=== PATIENT | female | born 1950 | race Caucasian/White ===

== ENCOUNTER 2020-05-31 09:58 | Outpatient (CLI) | payer MEDICARE, SELFPAY ==
[2020-05-31 10:41] LABS: Calcium 9.4 mg/dL (8.4-10.2)
[2020-05-31 10:53] LABS: Parathyroid Intact 32.9 pg/mL (7.5-53.5)
[2020-05-31 11:09] LABS: Free T4 Free Thyroxine 2.39 ng/mL (0.78-2.19)
[2020-05-31 11:11] LABS: Thyroid Stimulating Hormone < 0.015 uIU/mL (0.465-4.680)
[2020-06-05 12:47] LABS: Triiodothyronine T3 Free 3.9 pg/mL (2.3-4.2)
[2020-06-07 03:41] LABS: Thyroglobulin 0.7 ng/mL (2.8-40.9); Thyroglobulin Antibodies <1 IU/mL (<=1)
== END 2020-05-31 09:59 | disposition home or self-care (01) ==
LOC: ANHLAB 10:09
PROVIDERS: PCP Family Medicine
DX: C73 Malignant neoplasm of thyroid gland (principal)
CPT/HCPCS: 36415; 82310; 83970; 84432; 84439; 84443; 84481; 86800

== ENCOUNTER 2020-06-21 08:28 | Outpatient (CLI) | payer MEDICARE, SELFPAY ==
[2020-06-25 04:56] LABS: Thyroglobulin 1.5 ng/mL (2.8-40.9); Thyroglobulin Antibodies <1 IU/mL (<=1)
== END 2020-06-21 08:29 | disposition home or self-care (01) ==
PROVIDERS: PCP Family Medicine
DX: C73 Malignant neoplasm of thyroid gland (principal)
CPT/HCPCS: 36415; 84432; 84443; 86800

== ENCOUNTER 2020-06-28 08:18 | Outpatient (CLI) | payer MEDICARE, SELFPAY ==
[2020-06-28 08:52] LABS: Calcium 9.5 mg/dL (8.4-10.2)
[2020-06-28 09:33] LABS: Free T4 Free Thyroxine 0.21 ng/mL (0.78-2.19)
[2020-07-01 04:08] LABS: Thyroglobulin 5.2 ng/mL (2.8-40.9); Thyroglobulin Antibodies <1 IU/mL (<=1)
== END 2020-06-28 08:19 | disposition home or self-care (01) ==
LOC: ANHLAB 08:26
PROVIDERS: PCP Family Medicine
DX: C73 Malignant neoplasm of thyroid gland (principal)
CPT/HCPCS: 36415; 82310; 84432; 84439; 84443; 84481; 86800

== ENCOUNTER 2020-08-02 07:38 | Outpatient (CLI) | payer MEDICARE, SELFPAY ==
[2020-08-06 05:57] LABS: Thyroglobulin 2.4 ng/mL (2.8-40.9); Thyroglobulin Antibodies <1 IU/mL (<=1)
== END 2020-08-02 07:39 | disposition home or self-care (01) ==
PROVIDERS: PCP Family Medicine
DX: C73 Malignant neoplasm of thyroid gland (principal)
CPT/HCPCS: 36415; 84432; 84443; 86800

== ENCOUNTER 2020-10-15 00:32 | Outpatient (CLI) | payer MEDICARE, SELFPAY ==
[2020-10-15 18:51] LABS: SARS-CoV-2 RNA PCR Negative
== END 2020-10-15 00:33 | disposition home or self-care (01) ==
LOC: ANHCOVIDDT 00:32
PROVIDERS: PCP Family Medicine; Visit Provider Internal Medicine Gastroenterology
DX: Z01.812 Encounter for preprocedural laboratory examination (principal); Z20.828 Contact with and (suspected) exposure to other viral communicable diseases
CPT/HCPCS: 87635; C9803; U0003

== ENCOUNTER 2020-10-18 01:25 | Day surgery (SDC) | payer MEDICARE, SELFPAY ==
[2020-10-09 13:26] VITALS: BMI 21.5
[2020-10-18 09:17] VITALS: BP 137/75; PULSE 84; RESP 20; TEMP 36.9; O2SAT 99
[2020-10-18] MEDS: LACTATED RINGERS 1,000 ML 150 ML IV CONT (09:26)
--- NOTE | 2020-10-18 09:53 | WPDGICN ---
Assessment and Plan Assessment and plan (1) Family history of colon cancer in mother: Code(s): Z80.0 - Family history of malignant neoplasm of digestive organs Status: Acute Assessment and Plan: Patient presents for surveillance colonoscopy. Her family history includes mother with colon cancer grandmother with colon cancer uncle with colon cancer and a sister with colon cancer. Surveillance colonoscopies are recommended at least every 5 years if not more frequent. GI Consult Note Consult date/time: 10/18/20 09:53 HPI: Priscilla Borja is a 70 year old female Seen in evaluation at the request of Dr. Garcia. Patient has a family history of colon cancer. She presents today for colonoscopy. Patient's family includes sister mother uncle grandmother all with colon cancer. One sister had a premalignant polyp removed. Patient states that her current weight appetite bowel movements are normal. She denies abdominal pain. She has had no bleeding. The patient's past history is significant for thyroid cancer on 2 occasions. Patient presents today for surveillance colonoscopy Review of Systems Review of Systems: All systems reviewed & are unremarkable except as noted in HPI and below PMFSH Past Medical History Medical History (Updated 10/18/20 @ 09:55 by Rosendo Frazier MD) Normal nuclear stress test 9.25.20 Trigger finger (~2015) Varicose vein of leg Surgical History Surgical History H/O arthroplasty (~2008) H/O right breast biopsy (~1994) History of bilateral carpal tunnel release (~2004) History of thyroidectomy, total 2018 papillary cancer S/P Mohs surgery for basal cell carcinoma (~2012) S/P removal of left ovary Family History Family History Mother Patient's mother is , Onset Age: 61 Carcinoma of colon Family history of malignant neoplasm of uterus Family history of malignant neoplasm of breast Father Patient's father is , Onset Age: 60 Family history of malignant neoplasm of skin Carcinoma of colon Family history of throat cancer Sibling Carcinoma of colon Other Family history of lung cancer Family history of malignant neoplasm of esophagus Malignant neoplasm of prostate Social History Social History Smoking status: Never smoker Alcohol intake: current Drinks per week: 4 Living arrangements: with family Gender identity (if verbalized by the patient): Female Spiritual care concerns: No Meds Home Medications and Allergies Home Medications Medication Instructions Recorded Confirmed Type aspirin 81 mg chewable tablet 81 mg PO DAILY 09/27/19 10/09/20 History cholecalciferol (vitamin D3) 50 50 mcg PO DAILY 09/27/19 10/09/20 History mcg (2,000 unit) capsule glucosamine sulfate 500 1 cap PO BID 09/27/19 10/09/20 History mg-chondroitin 250 mg-msm 250 mg capsule levothyroxine 112 mcg tablet 112 mcg PO DAILY 05/08/20 10/09/20 History meloxicam 15 mg tablet 15 mg PO DAILY #90 tablet 06/20/20 10/09/20 Rx amoxicillin 500 mg capsule See Rx Instructions .ROUTE 09/16/20 10/09/20 Rx .COMPLEX #90 cap atorvastatin 10 mg tablet 10 mg PO DAILY #90 tablet 10/02/20 10/09/20 Rx clorazepate dipotassium 7.5 mg 7.5 mg PO BID PRN #60 tablet 10/10/20 Rx tablet Allergies Allergy/AdvReac Type Severity Reaction Status Date / Time hydrocodone Allergy Unknown Nausea Verified 10/18/20 09:15 Vital Signs Vital Signs - 24 hr 10/18/20 09:17 Temperature 98.5 F Pulse Rate 84 Respiratory Rate 20 Blood Pressure 137/75 Pulse Oximetry 99 Exam Narrative: Exam Narrative: physical exam reveals patient to be alert. Vital signs stable. HEENT exam unremarkable. Lungs are clear to auscultation and percussion. Heart is without murmur or extra sounds. Abdominal exam bowel s
--- NOTE | 2020-10-18 09:58 | WPDANESEPPF ---
Anes - Initial Pre Proc Eval Procedure: Operation Date: 10/18/20 10:30 Proposed Procedures p Screening Colonoscopy - Rosendo Frazier MD Date/Time: 10/18/20 09:58 Surgeon: Rosendo Frazier MD Pre Op Diagnosis: Fam Hx Colon Ca Patient Data Age: 70 Gender: F Height: 5 ft Weight: 50.1 kg Last Vital Signs Temp 98.5 F 10/18/20 09:17 Pulse 84 10/18/20 09:17 Resp 20 10/18/20 09:17 BP 137/75 10/18/20 09:17 Pulse Ox 99 10/18/20 09:17 Allergies Allergy/AdvReac Type Severity Reaction Status Date / Time hydrocodone Allergy Unknown Nausea Verified 10/18/20 09:15 Home Medications Medication Instructions Recorded Confirmed Type aspirin 81 mg chewable tablet 81 mg PO DAILY 09/27/19 10/09/20 History cholecalciferol (vitamin D3) 50 50 mcg PO DAILY 09/27/19 10/09/20 History mcg (2,000 unit) capsule glucosamine sulfate 500 1 cap PO BID 09/27/19 10/09/20 History mg-chondroitin 250 mg-msm 250 mg capsule levothyroxine 112 mcg tablet 112 mcg PO DAILY 05/08/20 10/09/20 History meloxicam 15 mg tablet 15 mg PO DAILY #90 tablet 06/20/20 10/09/20 Rx amoxicillin 500 mg capsule See Rx Instructions .ROUTE 09/16/20 10/09/20 Rx .COMPLEX #90 cap atorvastatin 10 mg tablet 10 mg PO DAILY #90 tablet 10/02/20 10/09/20 Rx clorazepate dipotassium 7.5 mg 7.5 mg PO BID PRN #60 tablet 10/10/20 Rx tablet Patient hx anesthesia problems: none Family hx anesthesia problems: none PMFSH Past Medical History Medical History (Updated 10/18/20 @ 09:58 by Varun Ferrer MD) Gastroesophageal reflux Mixed hyperlipidemia Normal nuclear stress test ..20 Thyroid cancer Trigger finger (~2015) Varicose vein of leg Surgical History Surgical History H/O arthroplasty (~2008) H/O right breast biopsy (~1994) History of bilateral carpal tunnel release (~2004) History of thyroidectomy, total 2018 papillary cancer S/P Mohs surgery for basal cell carcinoma (~2012) S/P removal of left ovary Family History Family History Mother Patient's mother is , Onset Age: 61 Carcinoma of colon Family history of malignant neoplasm of uterus Family history of malignant neoplasm of breast Father Patient's father is , Onset Age: 60 Family history of malignant neoplasm of skin Carcinoma of colon Family history of throat cancer Sibling Carcinoma of colon Other Family history of lung cancer Family history of malignant neoplasm of esophagus Malignant neoplasm of prostate Social History Social History Smoking status: Never smoker Alcohol intake: current Drinks per week: 4 Living arrangements: with family Gender identity (if verbalized by the patient): Female Spiritual care concerns: No Anes - Eval Final PreProcedure Day of Procedure 10/18/20 09:58 Patient weight: normal Heart: regular rate and rhythm Lungs: clear to auscultation Airway: Mallampati scale class II Neurological: alert and oriented Last oral intake: >/= 8 hours ASA classification: III Emergent: no Anesthetic plan: proceed Anesthesia type and monitoring: general GIVS and standard monitoring Informed Consent: The patient's anesthetic plan and its attendant risks and benefits were discussed with the patient/family/POA. Questions were solicited and answers provided to the satisfaction of the patient/family/POA.
[2020-10-18 10:23] VITALS: BP 112/78; PULSE 67; RESP 19; O2SAT 99
[2020-10-18 10:33] VITALS: BP 113/77; PULSE 75; RESP 20; O2SAT 98
[2020-10-18 10:43] VITALS: BP 129/75; PULSE 63; RESP 16; O2SAT 98
== END 2020-10-18 10:54 | disposition home or self-care (01) ==
PROVIDERS: PCP Family Medicine; Visit Provider Internal Medicine Gastroenterology
PROC: 0DJD8ZZ Inspection of Lower Intestinal Tract, Via Natural or Artificial Opening Endoscopic (ICD-10-PCS; CPT 45378; principal; 2020-10-18 10:30)
DX: Z12.11 Encounter for screening for malignant neoplasm of colon (principal); Z80.0 Family history of malignant neoplasm of digestive organs; K64.8 Other hemorrhoids; K57.30 Diverticulosis of large intestine without perforation or abscess without bleeding; Z79.82 Long term (current) use of aspirin; E78.2 Mixed hyperlipidemia; K21.9 Gastro-esophageal reflux disease without esophagitis; Z85.850 Personal history of malignant neoplasm of thyroid; E89.0 Postprocedural hypothyroidism
CPT/HCPCS: G0105; J2704; J7120

== ENCOUNTER 2020-11-28 10:00 | Outpatient (RCR) | payer MEDICARE, SELFPAY ==
--- NOTE | 2020-10-29 11:15 | PTOPEVAL ---
Thank you for referring Priscilla Borja to [facility].? The patient is scheduled to be seen for therapy? ____x/week for ___ weeks. Please review, sign, date and return this plan of care FAISAL. I agree with and certify that the following plan of care is medically necessary. Referring Physician Date Admitting Provider: Attending Provider: PHYSICIAN NOT ON STAFF Referring Provider: *PT Outpatient Evaluation Start: 10/29/20 08:40 Freq: Status: Active Protocol: Document 10/29/20 08:40 RASTA (Rec: 10/29/20 09:59 RASTA [id number]) Therapy Assessment Status Assessment Status Assessment Status Evaluation Outpatient Past Medical History Past Medical History Source of Past Medical History Recalled from Previous Visit, Confirmed with Patient/Family Neurological History Hx Neurological Disorders No Significant History Cardiovascular History Hx Hypercholesterolemia Yes Respiratory History Hx Respiratory Disorders No Significant History Gastrointestinal History Hx Gastrointestinal Disorders No Significant History Genitourinary History Hx Genitourinary Disorders No Significant History Musculoskeletal History Hx Arthritis Yes Hx Degenerative Disk Disease Yes: epidural injection 2019 Hematological History Hx Hematological Disorders No Significant History Endocrine History Hx Thyroidectomy Yes: 2017 HEENT History Hx Other HEENT Disorders Yes: Radical neck dissection for thyroid CA 2019 Integumentary History Hx Other Skin Disorders Yes: basal cell carcinoma left nare Reproductive History Hx Reproductive Disorders No Significant History Psychosocial History Hx Anxiety Yes Pain History History of Any Previous or Ongoing No Significant History Instance of Pain Anesthesia History Hx Anesthesia Reactions No Significant History Other History Hx Cancer Yes: Thyroid x2 Evaluation Information Problem Diagnosis lumbar spinal stenosis,lumbar spondylolisthesis grade I, severe degeneration Onset March 2021 Subjective Information Had been walking with Query Text:As Reported By Patient/ neighbors 2-5 miles/day - was Family walking on the road - [address] always on the L side - began to have pain with L hip - now pain is down the L leg - usually down the lateral aspect - but occasional in the anterior thigh, posterior
--- NOTE | 2020-10-29 11:16 | PTOPEVAL ---
INITIAL PHYSICAL THERAPY EVALUATION and PLAN OF CARE Thank you for referring Priscilla Borja to [facility].? Priscilla is scheduled to be seen for physical therapy? 2x/week for 4 weeks. Please review, sign, date and return this plan of care FAISAL. I agree with and certify that the following plan of care is medically necessary. Referring Physician Date Admitting Provider: Attending Provider: PHYSICIAN NOT ON STAFF Referring Provider: *PT Outpatient Evaluation Start: 10/29/20 08:40 Freq: Status: Active Protocol: Document 10/29/20 08:40 RASTA (Rec: 10/29/20 09:59 RASTA [id number]) Therapy Assessment Status Assessment Status Assessment Status Evaluation Outpatient Past Medical History Past Medical History Source of Past Medical History Recalled from Previous Visit, Confirmed with Patient/Family Neurological History Hx Neurological Disorders No Significant History Cardiovascular History Hx Hypercholesterolemia Yes Respiratory History Hx Respiratory Disorders No Significant History Gastrointestinal History Hx Gastrointestinal Disorders No Significant History Genitourinary History Hx Genitourinary Disorders No Significant History Musculoskeletal History Hx Arthritis Yes Hx Degenerative Disk Disease Yes: epidural injection 2019 Hematological History Hx Hematological Disorders No Significant History Endocrine History Hx Thyroidectomy Yes: 2017 HEENT History Hx Other HEENT Disorders Yes: Radical neck dissection for thyroid 2019 Integumentary History Hx Other Skin Disorders Yes: basal cell carcinoma left nare Reproductive History Hx Reproductive Disorders No Significant History Psychosocial History Hx Anxiety Yes Pain History History of Any Previous or Ongoing No Significant History Instance of Pain Anesthesia History Hx Anesthesia Reactions No Significant History Other History Hx Cancer Yes: Thyroid x2 Evaluation Information Problem Diagnosis lumbar spinal stenosis,lumbar spondylolisthesis grade I, severe degeneration Onset March 2021 Subjective Information Had been walking with Query Text:As Reported By Patient/ neighbors 2-5 miles/day - was Family walking on the road - [address] always on the L side - began to have pain with L hip - now pain is down the L leg - usually down the lateral aspect - but occasional in the
--- NOTE | 2020-11-28 17:01 | PTOPEVAL ---
PHYSICAL THERAPY DISCHARGE SUMMARY Thank you for referring Priscilla Borja to [facility].? Priscilla has made progress towards goals set. She is compliant and performs HEP well. She is ready for discharge from PT to [facility]. She was seen for a total of 9 visits. I agree with Priscilla's discharge from PT. Referring Physician Date Admitting Provider: Attending Provider: PHYSICIAN NOT ON STAFF Referring Provider: *PT Outpatient Evaluation Start: 10/29/20 08:40 Freq: Status: Active Protocol: Document 11/28/20 10:08 RASTA (Rec: 11/28/20 11:03 RASTA [id number]) Therapy Assessment Status Assessment Status Assessment Status Discharge Evaluation Information Problem Subjective Information Priscilla states that they were at Query Text:As Reported By Patient/ [place] yesterday looking at Family things to remodel kitchen - lots of standing, increased back/leg pain. Pain will still go away when sitting down. Pain Assessment Timing of Pain Assessment Timing of Pain Assessment Assessment Pain Scale Pain Scale Used Numeric (1 - 10) Self Report Pain Assessment Left Leg(s) Reported Pain Level 0 Lowest Pain Intensity 0 Greatest Pain Intensity 9 Pain Aggravating Factors Prolonged Position,Weight Bearing/Standing Pain Score Pain Score 0: Self Report Interventions Used Pain Relief Interventions Used By Sitting Patient Cervical and Lumbar ROM Lumbar ROM Lumbar Flexion (0-90) 45 Query Text:Active in Degrees Lumbar Extension (0-40) 25 Query Text:Active in Degrees Lumbar Lateral Flexion Right (0-40) 20 Query Text:Active in Degrees Lumbar Lateral Flexion Left (0-40) 20 Query Text:Active in Degrees Normal Lumbar Segmental Motion Yes Lumbar Comments able to place hands on floor Palpation Assessment Palpation Palpation in standing - L iliac crest mildly elevated, increase with shoulder symmetry prone lying - pelvic symmetry present - good sacral mobility , limited lumbar P-A testing - improved R thoracic rotation - no tenderness with mobility testing L lateral lumbar musculature/soft tissue - still mild tension present PT Clinical Summary Clinical Summary Protocol: PTEVCODE PT Clinical Summary Modified Oswestry LBP
== END 2020-11-29 08:09 | disposition home or self-care (01) ==
LOC: ANHPT 10:00
PROVIDERS: PCP Family Medicine
DX: M54.16 Radiculopathy, lumbar region (principal); M43.16 Spondylolisthesis, lumbar region
CPT/HCPCS: 97110; 97140; 97161

== ENCOUNTER 2022-09-07 09:09 | Outpatient (CLI) | payer MEDICARE, SELFPAY ==
[2022-09-07 10:38] LABS: Thyroid Stimulating Hormone < 0.015 uIU/mL (0.465-4.680)
== END 2022-09-07 09:10 | disposition home or self-care (01) ==
PROVIDERS: PCP Family Medicine
DX: C73 Malignant neoplasm of thyroid gland (principal); E89.0 Postprocedural hypothyroidism
CPT/HCPCS: 36415; 84432; 84443; 86800

== ENCOUNTER 2024-04-03 12:04 | Emergency (ER) | payer MEDICARE, SELFPAY ==
[2024-04-03 12:15] VITALS: BP 124/83; PULSE 77; RESP 16; TEMP 36.7; O2SAT 100
--- NOTE | 2024-04-03 12:25 | ED.URI ---
HPI - URI/Sore Throat General Chief Complaint: Upper Respiratory Infection Stated Complaint: Cold Symptoms Time Seen by Provider: 04/03/24 12:26 Source: patient Mode of arrival: ambulatory Limitations: no limitations History of Present Illness HPI Narrative: 73-year-old female presents with complaint of cough for 9 days. Patient reports that cough started dry, nonproductive. Now is coughing up pain yellow sputum. Has mild nasal congestion. Afebrile. No chest pain or shortness of breath. All systems reviewed and negative except as noted above. Related Data Home Medications Medication Instructions Recorded Confirmed cholecalciferol (vitamin D3) 50 50 mcg PO DAILY 09/27/19 04/03/24 mcg (2,000 unit) capsule (Vitamin D3) glucosamine sulfate 500 1 cap PO BID 09/27/19 04/03/24 mg-chondroitin 250 mg-msm 250 mg capsule calcium carbonate (Calcium 600) 600 mg PO BID 10/16/22 04/03/24 amoxicillin 500 mg capsule 500 mg PO DAILY 04/03/24 04/03/24 Allergies Allergy/AdvReac Type Severity Reaction Status Date / Time hydrocodone Allergy Unknown Nausea Verified 04/03/24 12:12 Review of Systems Review of Systems: CONSTITUTIONAL: Denies fever, chills, or sweats. EYES: Denies visual changes, redness, or discharge. ENT: Reports rhinorrhea, congestion. Denies sore throat, or otalgia. CARDIOVASCULAR: Denies chest pain, palpitations, or edema. RESPIRATORY: Reports cough. Denies dyspnea. GASTROINTESTINAL: Denies abdominal pain, nausea, vomiting, or diarrhea. GENITOURINARY: Denies dysuria or hematuria. SKIN: Denies rash or itching. MUSCULOSKELETAL: Denies back pain, joint pain, or myalgia. NEUROLOGIC: Denies headache, numbness, or weakness. PSYCHIATRIC: Denies anxiety or depression. All other systems reviewed are negative, except as documented in HPI. [facility] Past Medical History Medical History (Updated 04/03/24 @ 12:43 by Varsha Galvan NP) Encounter for colonoscopy in patient with family history of colon cancer : internal hemmies/ sig diverticulosis Gastroesophageal reflux Mixed hyperlipidemia Normal nuclear stress test 08.02.20 Osteopenia Thyroid cancer 2017 and 2019 Trigger finger (~2016) Varicose vein of leg Surgical History Surgical History (Updated 11/16/23 @ 09:47 by Irma Fernandes MA) H/O arthroplasty (~2008) H/O right breast biopsy (~1994) History of bilateral carpal tunnel release (~2004) History of skin surgery 12/30/2022 Atypical Intraepidermal melanocytic proliferation History of thyroidectomy, total 2018 papillary cancer S/P Mohs surgery for basal cell carcinoma (~2012) S/P removal of left ovary Family History Family History Mother Patient's mother is , Onset Age: 61 Carcinoma of colon Family history of malignant neoplasm of uterus Family history of malignant neoplasm of breast Father Patient's father is , Onset Age: 60 Family history of malignant neoplasm of skin Carcinoma of colon Family history of throat cancer Sibling Carcinoma of colon Other Family history of lung cancer Family history of malignant neoplasm of esophagus Malignant neoplasm of prostate Social History Social History (Updated 11/16/23 @ 09:40 by Irma Fernandes MA) Smoking status: Never smoker Alcohol intake: current Drinks per week: 4 Substance use: never Substance use type: does not use Do You Feel Safe in your Home?: Yes Lack of Transportation: No Lack of Food: Never True Current Housing: I Have Housing Concerned About Future Housing: No Difficulty Paying Gas/Electric Bills: No Difficulty Paying for Meds: No Currently Unemployed: No Education: Bachelor's Degree Difficulty w/ Childcare or Family Care: No Living arrangements: with family Gender identity (if verbalized by the patient): Female Spiritual care concerns: No Comments At time of signature,
== END 2024-04-03 12:48 | disposition home or self-care (01) ==
PROVIDERS: Emergency Provider Nurse Practitioner Family; PCP Family Medicine
DX: J22 Unspecified acute lower respiratory infection (principal); E78.2 Mixed hyperlipidemia; M85.80 Other specified disorders of bone density and structure, unspecified site; K21.9 Gastro-esophageal reflux disease without esophagitis; E89.0 Postprocedural hypothyroidism; Z85.850 Personal history of malignant neoplasm of thyroid
CPT/HCPCS: 99213; G0463